=== PATIENT | male | born 1970 | race African-American/Black ===

== ENCOUNTER 2025-03-15 23:32 | Emergency (ER) | payer OTHER ==
[~2025-03-15] VITALS: Ht 188 cm; Wt 112.0 kg
[~2025-03-15 23:32] MED LIST: AMLO5TAB88 PO; ASPI-1497 MT; ATOR40TA70 MT; HYDR25TA PO; NITR0.4T49 SL
[2025-03-15 23:48] VITALS: O2SAT 98
[2025-03-16 01:02] LABS: BASOPHILS % 0.3 % (0.0-2.0); DIFFERENTIAL COMMENT 0; EOSINOPHILS % 1.5 % (0.0-5.0); HEMATOCRIT. 35.8 % (42.0-52.0); HEMOGLOBIN. 12.6 g/dL (14.0-18.0); LYMPHOCYTES % 31.4 % (20.0-50.0); MEAN CORPUSCULAR HEMOGLOBIN 28.1 pg (28.0-32.0); MEAN CORPUSCULAR HGB CONC 35.3 g/dL (31.0-37.0); MEAN CORPUSCULAR VOLUME 79.6 fL (80.0-94.0); MONOCYTES % 6.5 % (2.0-8.0); NEUTROPHILS % 60.3 % (40.0-76.0); PLATELET 397 x1000/uL (130-400); RED BLOOD CELL COUNT 4.49 mill/uL (4.7-6.1); WHITE BLOOD COUNT 11.6 x1000/uL (4.5-11.0)
[2025-03-16 01:15] LABS: CHLORIDE 106 mEq/L (98-107); SODIUM 140 mEq/L (136-145)
[2025-03-16 01:16] LABS: CARBON DIOXIDE 21 mEq/L (21-32)
[2025-03-16 01:17] LABS: CALCIUM 9.1 mg/dL (8.7-10.4)
[2025-03-16 01:21] LABS: GLUCOSE 101 mg/dL (70-105); UREA NITROGEN BLOOD 11 mg/dL (9-23)
[2025-03-16 01:22] LABS: TROPONIN I HIGH SENSITIVITY 11 ng/L (3.0-53)
[2025-03-16 04:09] LABS: TROPONIN I HIGH SENSITIVITY 10 ng/L (3.0-53)
[2025-03-16 05:00] VITALS: BP 138/79; PULSE 67; RESP 14; TEMP 36.7; O2SAT 95
== END 2025-03-16 05:35 | disposition home or self-care (01) ==
LOC: ER 23:32 → EDBEDREQ 03-16 05:05 → EDBEDREQTM 03-16 05:05 → ER 03-16 05:35
DX: R07.89 Other chest pain (principal); R06.02 Shortness of breath; I10 Essential (primary) hypertension; Z79.899 Other long term (current) drug therapy
CPT/HCPCS: 36415; 71045; 80048; 83880; 84484; 85025; 85379; 99285